=== PATIENT | male | born 1945 | race Caucasian/White ===

== ENCOUNTER → 2016-11-29 | Outpatient (REF) | payer MEDICARE ==
[~2016-11-29] MED LIST: 8 HO650T PO; ASPI81TA85 PO; ATEN25TA PO; AVOD0.5C PO; BENA25CA2 PO; CENTTAB47 PO; DIGO0.259 PO; FLON0.054; INDA25TAB PO; KLOR1TAB69 PO; LOSA100T36 PO; LOVE0.01 SC; LOVE0.8I SC; META0.52 PO; OMEP40CA2 PO; PERC5TAB6 PO; RANI15TA PO; RAPA8CAP PO; SIMV20TA2 PO; VITA-115 PO; XARE1TAB PO; ZYRT10CA PO
== END ==
LOC: M LAB REF 12:54
PROVIDERS: ATTEND Internal Medicine Medical Oncology
DX: C18.9 Malignant neoplasm of colon, unspecified (principal)

== ENCOUNTER 2016-12-08 10:36 | Emergency (ER) | payer MEDICARE, OTHER ==
[~2016-12-08] VITALS: Ht 180.3 cm; Wt 99.8 kg
[2016-12-08] MEDS ORDERED: TRAM50TA2 (11:03)
[2016-12-08] MEDS ORDERED: LORA-376 (11:03)
[2016-12-08] MEDS ORDERED: MORP1SOL (11:03)
[2016-12-08] MEDS ORDERED: LONS1TAB2 (11:03)
[2016-12-08] MEDS ORDERED: FOND5.0S (11:03)
[2016-12-08] MEDS ORDERED: MORP-38 (11:03)
[2016-12-08 13:40] VITALS: BP 121/60
== END 2016-12-08 13:41 | disposition home or self-care (01) ==
LOC: EDBD 10:36 → M ED 12:46
DX: C18.9 Malignant neoplasm of colon, unspecified (principal); G62.9 Polyneuropathy, unspecified; R29.6 Repeated falls; I10 Essential (primary) hypertension; M54.9 Dorsalgia, unspecified; G89.29 Other chronic pain; E78.00 Pure hypercholesterolemia, unspecified; N40.0 Benign prostatic hyperplasia without lower urinary tract symptoms; Z79.899 Other long term (current) drug therapy; Z88.8 Allergy status to other drugs, medicaments and biological substances; Z79.891 Long term (current) use of opiate analgesic